=== PATIENT | female | born 1980 | race African-American/Black ===

== ENCOUNTER 2017-03-10 07:22 | Emergency (ER) | payer MEDICAID | END 2017-03-10 08:34 | disposition home or self-care (01) | LOC: D.ER 07:22 | DX: J96.00 Acute respiratory failure, unspecified whether with hypoxia or hypercapnia (principal); I10 Essential (primary) hypertension; K21.9 Gastro-esophageal reflux disease without esophagitis; E11.9 Type 2 diabetes mellitus without complications; G40.909 Epilepsy, unspecified, not intractable, without status epilepticus ==

== ENCOUNTER → 2017-03-31 07:55 | Outpatient (CLI) | payer MEDICAID | LOC: D.MRI 03-17 15:00 | DX: M54.9 Dorsalgia, unspecified (principal); M16.10 Unilateral primary osteoarthritis, unspecified hip; M79.672 Pain in left foot ==